=== PATIENT | female | born 2005 | race Caucasian/White ===

== ENCOUNTER 2025-06-24 17:53 | Emergency (ER) | payer BC, OTHER, SELFPAY ==
[~2025-06-24 17:53] MED LIST: Iopamidol-370 76% 500 ML MDV (1 ML CHARGE) ONE
[2025-06-24 19:25] LABS: #Basophils 0.03 10x3/uL (0.0-0.2); #Eosinophils Less than 0.03 10x3/uL (0.0-0.7); #Monocytes 0.73 10x3/uL (0.11-0.59); #Neutrophils 13.00 10x3/uL (1.40-6.50); %Basophils 0.2 % (0.0-1.0); %Eosinophils 0.1 % (0.0-10.0); %Lymphocytes 7.1 % (21.0-51.0); %Monocytes 4.9 % (0.0-10.0); %Neutrophils 87.3 % (42.0-75.0); Hematocrit 39.1 % (36.0-47.0); Hemoglobin 13.6 g/dL (12.0-16.0); Mean Corpuscular Hemoglobin 31.3 pg (27.0-31.0); Mean Corpuscular Volume 89.9 fL (78.0-98.0); Platelet Count 199 10x3/uL (130-400); Red Blood Cell (RBC) Count 4.35 mill/uL (4.20-5.40); White Blood Cell (WBC) Count 14.88 10x3/uL (4.8-10.8)
[2025-06-24 19:33] LABS: BHCG - Serum Negative (NEGATIVE); Pregs Control Background? CLEAR/WHITE (CLR/WHITE); Pregs Control Bar Appear? YES (CONTROL BAR)
[2025-06-24 19:43] LABS: ALT (SGPT) 20 U/L (Less than 34); AST (SGOT) 23 U/L (11-34); Albumin 4.0 g/dL (3.1-4.5); Alkaline Phosphatase 60 U/L (40-110); Anion Gap 15 mmol/L (10-20); BUN (Urea Nitrogen) 15 mg/dL (7.0-18.7); Bilirubin, Total 0.9 mg/dL (0.3-1.2); Calc. Creatinine Clearance 0 mL/min (70-130); Calcium 9.2 mg/dL (7.8-10.44); Carbon Dioxide 19 mmol/L (22-29); Chloride 104 mmol/L (98-107); Globulin 3.4 g/dL (2.4-3.5); Glucose 88 mg/dL (70-105); Potassium 3.2 mmol/L (3.5-5.1); Sodium 135 mmol/L (136-145)
[2025-06-24] MEDS ORDERED: Ketorolac Tromethamine 30 MG (1 mL) VIAL ONE (19:51)
[2025-06-24 22:26] LABS: Magnesium 1.7 mg/dL (1.6-2.6)
[2025-06-24 22:43] LABS: Bacteria/HPF None Seen HPF (None Seen); CAUTI Indications for Culture Fever or rigors; Glucose, Urine (Dipstick) Normal (Negative); Leukocyte Negative Leu/uL (Negative); Protein, Urine (Dipstick) 30 mg/dL (Neg-Trace); WBC/HPF 0-3 HPF (0-3)
[2025-06-24 22:47] LABS: Specific Gravity, Urine Greater than 1.050 (1.002-1.036)
[2025-06-24 22:48] LABS: Urine Culture Reflex No No
[2025-06-24] MEDS ORDERED: Acetaminophen 500 MG TAB ONE (23:46)
== END 2025-06-24 23:53 | disposition short-term general hospital (02) ==
LOC: ERS 17:53
DX: J36 Peritonsillar abscess (principal); E87.6 Hypokalemia; N83.9 Noninflammatory disorder of ovary, fallopian tube and broad ligament, unspecified
CPT/HCPCS: 70491; 71045; 74177; 76856; 80053; 81001; 83605; 83735; 84484; 84703; 85025; 87040; 87086; 93005; 96374; 96375; J1885; J2270; Q9967